=== PATIENT | female | born 1970 | race Caucasian/White ===

== ENCOUNTER → 2020-08-02 09:12 | Outpatient (CLI) | payer SELFPAY ==
--- NOTE | ~2020-08-02 | XR_ITS ---
EXAMINATION: XR sacroiliac joints min 3V EXAM DATE: 08/02/2020 10:20 INDICATION: Chronic SI joint pain, Arthralgia. TECHNIQUE: Frontal projection sacroiliac joints, bilateral oblique projections of the sacroiliac berta nts. There is no prior study for comparison. FINDINGS: There is mild primary osteoarthritis. There are no bony erosions identified. Sacrum, sacro iliac joints, sacral arcuate lines are intact. No fusion of sacroiliac joints. Moderate disc disease at L4-5, at least moderate disc disease at L5-S1. IMPRESSION: 1. Mild sacroiliac gastroenteritis. 2. Moderate lower lumbar spondylosis. Reviewed, dictated and finalized at location A. CTOR DIGITAL
== END ==
PROVIDERS: PCP Family Medicine; Visit Provider Physician Assistant
DX: M47.817 Spondylosis without myelopathy or radiculopathy, lumbosacral region (principal)
CPT/HCPCS: 72202

== ENCOUNTER → 2020-08-23 09:57 | Outpatient (CLI) | payer SELFPAY ==
--- NOTE | ~2020-08-23 | XR_ITS ---
EXAMINATION: XR chest 2V DATE: 08/23/2020 10:49 INDICATION: Sjogren's syndrome. Dyspnea on exertion. EVETTE positive. TECHNIQUE: Frontal and lateral views of the chest were obtained. COMPARISON: None. FINDINGS: The chest demonstrates clear lungs without pneumonia, pleural effusion, or pneumothorax. Th e heart size is normal. Breast implants are noted. IMPRESSION: 1. No acute cardiopulmonary disease. Reviewed, dictated and finalized at location B. TS EDITOR
== END ==
PROVIDERS: PCP Family Medicine
DX: R76.8 Other specified abnormal immunological findings in serum (principal); M35.00 Sjogren syndrome, unspecified; R06.00 Dyspnea, unspecified
CPT/HCPCS: 71046

== ENCOUNTER → 2020-12-26 15:42 | Outpatient (CLI) | payer SELFPAY ==
--- NOTE | ~2020-12-26 | XR_ITS ---
XR chest 2V DATE: 12/26/2020 16:25 INDICATION: Covid 19 infection. No fever. TECHNIQUE: PA and lateral views COMPARISON: 08/23/2020 PA and lateral chest FINDINGS: Normal heart size. No hilar or mediastinal enlargement. No pulmonary infiltrate or consolid ation, pleural effusion or pulmonary vascular congestion or pneumothorax. IMPRESSION: No active cardiopulmonary disease Reviewed, dictated and finalized at location A.
== END ==
PROVIDERS: PCP Family Medicine; Visit Provider Nurse Practitioner Family
DX: U07.1 COVID-19 (principal)
CPT/HCPCS: 71046

== ENCOUNTER → 2021-04-02 09:54 | Outpatient (CLI) | payer SELFPAY ==
--- NOTE | ~2021-04-02 | MMUS_ITS ---
EXAMINATION: MM diag solomon implant BI w ratna, US breast BI complete HISTORY: Left breast pain TECHNIQUE: Additional 3-D tomosynthesis images of the breasts were performed and synthetic 2-D images were generated. CAD analysis was submitted and interpreted. High resolution complete bilateral breas t ultrasound was performed. COMPARISON: None BREAST PARENCHYMAL COMPOSITION: Breast composed of scattered areas of fibroglandular density. FINDINGS: MAMMOGRAPHIC FINDINGS: There are bilateral nodular asymmetries in the subareolar location of both breasts. There are no susp icious calcifications. ULTRASOUND: Right breast ultrasound: There are multiple cysts of the right breast. At 12:00, 2 cm from the nipple , there is a 5 mm intramammary lymph node. No suspicious masses are identified in the right breast to suggest malignancy. Left breast ultrasound: There are multiple simple cysts of the left breast. At 3:00, 5 cm from the ni pple, there is a 5 mm intramammary lymph node. No suspicious masses are identified in the left breast to suggest malignancy. IMPRESSION: 1. No evidence for malignancy in either breast. Benign bilateral breast findings. 2. Routine yearly screening mammogram and regular clinical breast examination are recommended. BI-RADS Category 2: Benign finding(s). Reviewed, dictated and finalized at location A. IMPRESSION: 1. No evidence for malignancy in either breast. Benign bilateral breast finding s. 2. Routine yearly screening mammogram and regular clinical breast examination a re recommended. BI-RADS Category 2: Benign finding(s).
== END ==
PROVIDERS: PCP Family Medicine; Visit Provider Nurse Practitioner Family
DX: N64.4 Mastodynia (principal); Z98.82 Breast implant status
CPT/HCPCS: 76641; 77062; 77066; G0279

== ENCOUNTER → 2021-10-10 14:17 | Outpatient (CLI) | payer SELFPAY ==
--- NOTE | ~2021-10-10 | US_ITS ---
US abdomen limited INDICATION: Right upper quadrant pain PROCEDURE: Realtime right upper abdominal ultrasound. COMPARISON: No prior studies for comparison. FINDINGS: The pancreas is normal without focal mass or pancreatic ductal dilation. Liver echotexture is normal without focal mass or intrahepatic biliary dilatation. There is normal directional flow i n the portal vein. There is a gallbladder polyp measuring 4 mm. No gallstones, gallbladder wall thickening or pericholec ystic fluid. Common bile duct measures 3 mm. No sonographic Blum's sign. IMPRESSION: 1: Gallbladder polyp measuring 4 mm. Reviewed, dictated and finalized at location B. FINISHER HAND
--- NOTE | ~2021-10-10 | US_ITS ---
US transvaginal DATE: 10/10/2021 15:04 INDICATION: Pelvic pain TECHNIQUE: Real-time imaging via transvaginal approach COMPARISON: None FINDINGS: History of hysterectomy 20 years ago. The uterus is absent. The ovaries are not visualized. No pelvic mass or abnormal pelvic fluid collection is evident. IMPRESSION: Status post hysterectomy Reviewed, dictated and finalized at Location A. Reviewed, dictated and finalized at location A. OMER SUPPORT ASSOCIATE IMPRESSION: Status post hysterectomy
== END ==
PROVIDERS: Visit Provider Nurse Practitioner Family
DX: K21.9 Gastro-esophageal reflux disease without esophagitis (principal); Q44.1 Other congenital malformations of gallbladder; K82.4 Cholesterolosis of gallbladder
CPT/HCPCS: 76705; 76830

== ENCOUNTER → 2022-11-18 12:46 | Outpatient (CLI) | payer SELFPAY ==
--- NOTE | ~2022-11-18 | CT_ITS ---
EXAMINATION: CTA chest PE protocol DATE: 11/18/2022 13:15 INDICATION: Chest pressure. Shortness of breath. TECHNIQUE: Computed tomography angiography (CTA) of the chest was performed with 100 mL Omnipaque-350 intravenous contrast timed to evaluate the pulmonary arteries. Coronal maximum intensity projection 3D-reconstructions were created by the technologist. Automated exposure control and iterative reconst ruction technique were employed. The dose-length product was 373.35 mGy-cm. COMPARISON: None. FINDINGS: There is no pneumonia or pleural effusion. The heart size is normal. No pericardial effusio n. There is no pulmonary embolus. There are bilateral breast implants with intracapsular ruptures. Th ere is mild thoracic spondylosis. IMPRESSION: 1. No pulmonary embolus. 2. Bilateral breast implants with intracapsular ruptures. Reviewed, dictated and finalized at location A. IVING SUPERVISOR
== END ==
PROVIDERS: PCP Family Medicine; Visit Provider Nurse Practitioner Family
DX: R06.02 Shortness of breath (principal); R79.89 Other specified abnormal findings of blood chemistry; T85.49XA Other mechanical complication of breast prosthesis and implant, initial encounter
CPT/HCPCS: 71275; Q9967

== ENCOUNTER → 2023-09-17 13:34 | Outpatient (CLI) | payer OTHER, SELFPAY ==
--- NOTE | ~2023-09-17 | US_ITS ---
EXAMINATION: US thyroid DATE: 09/17/2023 13:52 INDICATION: Thyroid nodule. TECHNIQUE: Multiple ultrasound images of the thyroid were obtained. COMPARISON: Chest CT 11/18/2022 FINDINGS: The right thyroid lobe measures 4.5 x 1.9 x 1.4 cm. The left thyroid lobe measures 4.1 x 1.3 x 1.2 c m. The thyroid demonstrates heterogeneous hypoechogenicity and increased vascularity. In the right t hyroid lobe, there is a 9 mm solid, hypoechoic, wider than tall nodule with smooth margin without ech ogenic foci (TI-RADS TR4). In the right thyroid lobe, there is a 5 mm solid, very hypoechoic, wider t de anda tall nodule with smooth margin without echogenic foci (TR4). In the left thyroid lobe, there is a 6 mm solid, very hypoechoic, wider than tall nodule with smooth margin without echogenic foci (TR4). IMPRESSION: 1. Heterogeneous, hypervascular thyroid, consistent with chronic lymphocytic (Xander) thyroiditis. 2. Small thyroid nodules, likely not clinically significant. No follow-up is needed. Reviewed, dictated and finalized at location E. NSIVE FIRE CONTROL SYSTEMS OPERATOR IMPRESSION: 1. Heterogeneous, hypervascular thyroid, consistent with chronic lymphocytic (H ashimoto) thyroiditis. 2. Small thyroid nodules, likely not clinically significant. No follow-up is ne eded.
== END ==
PROVIDERS: PCP Family Medicine; Visit Provider Family Medicine
DX: E04.2 Nontoxic multinodular goiter (principal)
CPT/HCPCS: 76536

== ENCOUNTER 2023-12-10 10:45 | Outpatient (CLI) | payer OTHER, SELFPAY ==
--- NOTE | ~2023-12-10 | MM_ITS ---
EXAMINATION: MM screening solomon BI w ratna HISTORY: Screening mammogram TECHNIQUE: Craniocaudal and mediolateral oblique 3-D tomosynthesis images were obtained and synthetic 2-D images were generated. CAD analysis was submitted and interpreted. COMPARISON: 04/02/2021 bilateral diagnostic mammography and bilateral complete breast ultrasound exam[facility]. Multiple bilateral breast cysts were reported. BREAST PARENCHYMAL COMPOSITION: There are scattered areas of fibroglandular density. FINDINGS: There is interval removal of bilateral breast implants since 04/02/2021. One or more breast masses are suggested in the outer mid left breast. Diagnostic left mammogram and l eft breast ultrasound examination are recommended. There is increased density in the lateral subareolar area of the right breast compared to 04/02/2021. Diagnostic right mammogram and right breast ultrasound examination are recommended. IMPRESSION: 1. Increased density in right subareolar area and suggestion of mass or masses in lateral left breast 2. Bilateral diagnostic mammography and breast ultrasound examination are recommended BI-RADS Category 0: Incomplete: Needs additional imaging evaluation. Reviewed, dictated and finalized at location A. IMPRESSION: 1. Increased density in right subareolar area and suggestion of mass or masses in lateral left breast 2. Bilateral diagnostic mammography and breast ultrasound examination are recom mended BI-RADS Category 0: Incomplete: Needs additional imaging evaluation.
== END 2023-12-10 10:46 ==
LOC: MICIMG 10:46
DX: Z12.31 Encounter for screening mammogram for malignant neoplasm of breast (principal); R92.8 Other abnormal and inconclusive findings on diagnostic imaging of breast
CPT/HCPCS: 77063; 77067

== ENCOUNTER 2024-03-24 07:47 | Outpatient (CLI) | payer OTHER, SELFPAY ==
--- NOTE | ~2024-03-24 | MMUS_ITS ---
EXAMINATION: MM diagnostic solomon BI w ratna, US breast BI complete HISTORY: Follow-up breast asymmetries/masses TECHNIQUE: Additional 3-D tomosynthesis images of the breasts were performed and synthetic 2-D images were generated. CAD analysis was submitted and interpreted. High resolution bilateral complete breas t ultrasound was performed. COMPARISON: Comparison to multiple prior studies sequentially, with oldest reviewed study dated 04/02/2021. BREAST PARENCHYMAL COMPOSITION: Not dense: There are scattered areas of fibroglandular density. FINDINGS: MAMMOGRAPHIC FINDINGS: Interval removal of breast implants. There is bilateral nodular asymmetries in the central and latera l aspect of both breasts. There are no suspicious calcifications or architectural distortion. ULTRASOUND: Complete bilateral US of all 4 quadrants of the breasts and retroareolar region was reviewed. Right breast: At 9:00, 3 cm from the nipple, there is a 4 mm cyst corresponding to the mammographic f inding. Left breast: At 3:00, 4 cm from the nipple there is a 4 mm cyst. At 3:00, 2 cm from the nipple, there is a 7 mm intramammary lymph node. At 3:00, 1 cm from the nipple, there is a 3 mm cyst. No suspiciou s masses in either breast to suggest malignancy. IMPRESSION: 1. No evidence for malignancy in either breast. Benign findings. 2. Routine yearly screening mammogram and regular clinical breast examination are recommended. BI-RADS Category 2: Benign finding(s). Reviewed, dictated and finalized at location B. IMPRESSION: 1. No evidence for malignancy in either breast. Benign findings. 2. Routine yearly screening mammogram and regular clinical breast examination a re recommended. BI-RADS Category 2: Benign finding(s).
== END 2024-03-24 07:48 ==
PROVIDERS: PCP Family Medicine
DX: R92.8 Other abnormal and inconclusive findings on diagnostic imaging of breast (principal)
CPT/HCPCS: 76641; 77062; 77066; G0279

== ENCOUNTER 2025-01-05 09:58 | Outpatient (CLI) | payer OTHER, SELFPAY ==
--- NOTE | ~2025-01-05 | MR_ITS ---
MRI of the cervical spine Clinical History: Neck pain Technique: Axial T2-weighted and gradient images, and sagittal T1-weighted, T2-weighted, and STIR jannet ges were acquired. Findings: No fracture or subluxation identified. There is minimal reversal of the normal cervical anabelle dosis. No bone marrow signal abnormality seen. At C2-C3, there is no disc bulge or herniation. No spinal canal stenosis, cord compression, or neural foraminal narrowing. At C3-C4, there is no disc bulge or herniation. No spinal canal stenosis, cord compression, or neural foraminal narrowing. At C4-C5, there is minimal disc osteophyte complex. No spinal canal stenosis, cord compression, or ne ural foraminal narrowing. At C5-C6, there is mild disc osteophyte complex, with minimal flattening the ventral cord and the lef t side. Neural foramina are preserved. No canal stenosis. At C6-C7, there is no disc bulge or herniation. No spinal canal stenosis, cord compression, or neural foraminal narrowing. No abnormal signal seen in the spinal cord. Paravertebral soft tissues are unremarkable. Impression: Mild degenerative spondylosis overall, worst at C5-C6. Please see details above. Reviewed, dictated and finalized at [facility]. Impression: Mild degenerative spondylosis overall, worst at C5-C6. Please see details above .
--- NOTE | ~2025-01-05 | MR_ITS ---
MRI of the lumbar spine Clinical History: Back pain Technique: Axial T2-weighted images, and sagittal T1-weighted, T2-weighted, and and T2 fat-sat images were acquired. Findings: There is no fracture or subluxation of the lumbar spine. Vertebral bodies maintain normal h eight and alignment. No bone marrow signal abnormality seen. At L1-L2, L2-L3, L3-L4, intervertebral discs maintain normal signal and position. No disc bulge or he rniation at these levels. There are mild facet joint degenerative changes at these levels. No spinal canal stenosis or neural foraminal narrowing at these levels. At L4-L5, there is advanced degenerative disc narrowing. There is minimal disc bulge with advanced fa cet arthropathy. No central canal stenosis or neural foraminal narrowing. At L5-S1, there is advanced degenerative disc narrowing, there is mild facet arthropathy. No central canal stenosis or neural foraminal narrowing. Paravertebral soft tissues are unremarkable. Impression: Minimal degenerative spondylosis, as above. Reviewed, dictated and finalized at location M. Impression: Minimal degenerative spondylosis, as above.
== END 2025-01-05 09:59 | disposition home or self-care (01) ==
LOC: MICIMG 09:59
PROVIDERS: PCP Family Medicine; Visit Provider Family Medicine
DX: M54.50 Low back pain, unspecified (principal); M54.31 Sciatica, right side; M54.32 Sciatica, left side; M50.30 Other cervical disc degeneration, unspecified cervical region
CPT/HCPCS: 72141; 72148